=== PATIENT | female | born 1965 | race Caucasian/White ===

== ENCOUNTER 2020-05-03 08:02 | Day surgery (SDC) | payer OTHER, SELFPAY ==
[~2020-05-03] VITALS: Ht 170.2 cm; Wt 149.7 kg
[2020-05-03] MEDS ORDERED: SIMETHICONE 40 MG/0.6 ML ML ONE (14:42)
[2020-05-03 16:20] VITALS: BP_SYST 145
[2020-05-03] MEDS ORDERED: fentaNYL CITRATE/PF 100 MCG/2 ML AMP IVP PRN (17:15)
== END 2020-05-03 16:55 | disposition home or self-care (01) ==
LOC: SDS 08:02 → SMU 08:03 → SDS 16:55
PROVIDERS: ATTEND Internal Medicine
DX: K21.9 Gastro-esophageal reflux disease without esophagitis (principal); K29.70 Gastritis, unspecified, without bleeding; Z11.59 Encounter for screening for other viral diseases; G47.33 Obstructive sleep apnea (adult) (pediatric); E11.9 Type 2 diabetes mellitus without complications; Z90.49 Acquired absence of other specified parts of digestive tract; Z86.010 Personal history of colon polyps; Z20.828 Contact with and (suspected) exposure to other viral communicable diseases
CPT/HCPCS: 36415; 43239; 82962; 87081; 88305; 88312; 88313; 93005; G0378; U0003; J7030